=== PATIENT | female | born 1990 | race Caucasian/White ===

== ENCOUNTER 2022-01-05 14:02 | Emergency (ER) | payer MEDICAID, OTHER ==
[~2022-01-05] VITALS: Ht 157.5 cm; Wt 59.0 kg
[2022-01-05 14:02] VITALS: BP 101/64
--- NOTE | 2022-01-05 14:06 | NUR ---
BIB FRIEND C/O COUGH,CONGESTION AND SOB X 1 MONTH. OXYGEN SATURATION LEVEL IN ROOM AIR IS AT 99%. WILL CONTINUE TO MONITOR THE PATIENT.
[2022-01-05 14:48] LABS: BASOPHILS # (AUTO) 0.1 K/uL (0.0-0.2); EOSINOPHILS % (AUTO) 1.3 % (0.0-6.0); HEMATOCRIT 42 % (33-45); HEMOGLOBIN 13.7 g/dL (11.5-14.8); LYMPHOCYTES % (AUTO) 29.5 % (20.0-44.0); MEAN CORPUSCULAR HGB CONC 33 g/dl (31.0-36.0); MEAN CORPUSCULAR VOLUME 79 fL (82-100); MONOCYTES # (AUTO) 0.7 K/uL (0.1-1.30); MONOCYTES % (AUTO) 10.4 % (2.0-12.0); NEUTROPHILS # (AUTO) 3.9 K/uL (1.8-8.9); NEUTROPHILS % (AUTO) 57.8 % (43.0-81.0); PLATELET COUNT (AUTO) 325 K/uL (150-450); RED BLOOD CELL COUNT(AUTO) 5.27 MIL/uL (4.0-5.2); WHITE BLOOD COUNT (AUTO) 6.7 K/uL (4.3-11.0)
[2022-01-05 15:59] LABS: CALCIUM, SERUM 9.7 mg/dL (8.5-10.1); CREATININE 0.7 mg/dL (0.6-1.3); POTASSIUM 4.2 mmol/L (3.5-5.1)
[2022-01-05] MEDS ORDERED: AZIT250T13 PO (16:22)
[2022-01-05] MEDS ORDERED: ALBU8.5H8 INH (17:32)
--- NOTE | 2022-01-05 17:43 | NUR ---
Patient discharged to home in stable condition. Written and verbal after care instructions given. Patient verbalizes understanding of instruction.
== END 2022-01-05 17:44 | disposition home or self-care (01) ==
LOC: ER 14:05
DX: U07.1 COVID-19 (principal); J12.82 Pneumonia due to coronavirus disease 2019; J45.909 Unspecified asthma, uncomplicated; Z60.2 Problems related to living alone
CPT/HCPCS: 36415; 71045-TC; 80048-TC; 84702-TC; 85025-TC

== ENCOUNTER 2022-05-18 20:38 | Emergency (ER) | payer MEDICAID, OTHER ==
[~2022-05-18] VITALS: Ht 157.5 cm; Wt 59.0 kg
[~2022-05-18 20:38] MED LIST: ALBU8.5H8 INH
[2022-05-18 22:42] VITALS: BP 119/73
[2022-05-18] MEDS ORDERED: IPRATROPIUM NEB FS 0.5 MG/2.5 ML AMPUL.NEB NEB ONE (23:30)
[2022-05-18] MEDS ORDERED: CODEINE/PROMETHAZINE HCL 5 ML UDC PO PRN (23:30)
[2022-05-18] MEDS ORDERED: KETOROLAC TROMETHAMINE INJ 60 MG/2 ML VIAL IM ONE (23:30)
[2022-05-18] MEDS ORDERED: ALBUTEROL FS 2.5 MG/3 ML VIAL.NEB NEB ONE (23:30)
[2022-05-18] MEDS ORDERED: CODEINE/PROMETHAZINE HCL 5 ML UDC ONE ×2 (23:44→23:45)
[2022-05-18] MEDS ORDERED: KETOROLAC TROMETHAMINE INJ 30 MG/ML VIAL ONE (23:44)
[2022-05-18] MEDS ORDERED: NAPR-1009 PO (23:47)
[2022-05-18] MEDS ORDERED: FLUT1DIS INH (23:47)
[2022-05-18] MEDS ORDERED: PROM118S PO (23:47)
[2022-05-18] MEDS ORDERED: ALBUTEROL FS 2.5 MG/3 ML VIAL.NEB ONE (23:50)
[2022-05-18] MEDS ORDERED: IPRATROPIUM NEB FS 0.5 MG/2.5 ML AMPUL.NEB ONE (23:50)
== END 2022-05-19 00:48 | disposition home or self-care (01) ==
LOC: ER 20:48
DX: J20.9 Acute bronchitis, unspecified (principal); R05.9 Cough, unspecified; J45.909 Unspecified asthma, uncomplicated; Z79.51 Long term (current) use of inhaled steroids
CPT/HCPCS: 99285; 71045; 96372; 94640 ×2; J1885